=== PATIENT | male | born 1990 | race Hispanic/Latino ===

== ENCOUNTER 2019-09-07 22:54 | Emergency (ER) | payer MEDICAID, OTHER ==
[2019-09-08] MEDS ORDERED: ORPHENADRINE CITRATE 30 MG/ML ML ONE (00:34)
[2019-09-08] MEDS ORDERED: KETOROLAC TROMETHAMINE 60 MG/2 ML VIAL ONE (00:34)
== END 2019-09-08 01:27 | disposition home or self-care (01) ==
LOC: EDH 22:54
DX: S20.229A Contusion of unspecified back wall of thorax, initial encounter (principal); S00.93XA Contusion of unspecified part of head, initial encounter; X58.XXXA Exposure to other specified factors, initial encounter; Y93.89 Activity, other specified; Y92.512 Supermarket, store or market as the place of occurrence of the external cause; Y99.8 Other external cause status; M62.830 Muscle spasm of back
CPT/HCPCS: 71046; 72040; 96372 ×2; 99284; J1885; J2360

== ENCOUNTER 2023-07-11 20:14 | Emergency (ER) | payer OTHER ==
[~2023-07-11] VITALS: Ht 165.1 cm; Wt 75.7 kg
[2023-07-11] MEDS ORDERED: IBUP-2077 PO (23:00)
[2023-07-11] MEDS ORDERED: HYDR25SU11 RC (23:00)
[2023-07-11] MEDS ORDERED: DOCU-116 PO (23:00)
[2023-07-11 23:45] VITALS: BP 136/84; PULSE 62; RESP 16; O2SAT 99
== END 2023-07-11 23:50 | disposition home or self-care (01) ==
LOC: EDH 20:14
DX: K64.9 Unspecified hemorrhoids (principal); K59.00 Constipation, unspecified; K62.89 Other specified diseases of anus and rectum
CPT/HCPCS: 99282

== ENCOUNTER 2023-10-19 11:50 | Emergency (ER) | payer OTHER ==
[~2023-10-19] VITALS: Ht 165.1 cm; Wt 73.9 kg
[~2023-10-19 11:50] MED LIST: DOCU-116 PO; HYDR25SU11 RC; IBUP-2077 PO
[2023-10-19 12:31] LABS: INFLUENZA TYPE A Negative For Type A (NEGATIVE); INFLUENZA TYPE B Negative For Type B (NEGATIVE)
[2023-10-19 12:53] LABS: SARS-CoV-2, RNA, NAAT POSITIVE SARS CoV-2 (NEGATIVE)
[2023-10-19] MEDS ORDERED: BENZ-39 PO (13:02)
[2023-10-19 13:19] VITALS: BP 120/72; PULSE 74; RESP 16; O2SAT 100
== END 2023-10-19 13:20 | disposition home or self-care (01) ==
LOC: EDH 11:50
DX: U07.1 COVID-19 (principal); Z79.899 Other long term (current) drug therapy
CPT/HCPCS: 87635; 87804

== ENCOUNTER 2024-02-28 13:32 | Emergency (ER) | payer OTHER ==
[~2024-02-28] VITALS: Ht 167.6 cm; Wt 72.6 kg
[~2024-02-28 13:32] MED LIST changes: +BENZ-39 PO
[2024-02-28 15:05] LABS: RAPID GROUP A STREP negative (NEGATIVE)
[2024-02-28 15:10] LABS: SARS-CoV-2, RNA, NAAT NEGATIVE SARS CoV-2 (NEGATIVE)
[2024-02-28 15:15] LABS: INFLUENZA TYPE A Negative For Type A (NEGATIVE); INFLUENZA TYPE B Negative For Type B (NEGATIVE)
--- NOTE | 2024-02-28 15:42 | ERN ---
General Chief Complaint: Flu Symptoms Stated Complaint: FLU LIKE SYMPTOMS X4 DAYS Time Seen by MD: 13:58 Time Seen by Midlevel: 13:58 Source: patient History of Present Illness Initial Comments 33-year-old male presents to the ED for evaluation of flu-like symptoms onset 4 days ago. Allergies: Coded Allergies: No Known Drug Allergies (Unverified Allergy, Unknown, 09/08/19) Home Meds Active Scripts Benzonatate (Tessalon Perles) 100 Mg Cap, 100 MG PO TID for cough for 10 Days, #30 CAP 0 Refills Prov:JOSE ALBERTO AGUILAR 02/28/24 Azithromycin (Azithromycin) 250 Mg Tablet, 1 TAB PO AD for 5 Days, #6 TAB 0 Refills 2 the first day followed by 1 for days 2-5 Prov:JOSE ALBERTO AGUILAR 02/28/24 Benzonatate (Tessalon Perles) 100 Mg Cap, 100 MG PO TIDP PRN for COUGH, #30 CAP Prov:JUAN GREENWOOD NP 10/19/23 Ibuprofen (Ibuprofen 800 mg Tab) 800 Mg Tab, 800 MG PO Q8H PRN for PAIN, #12 TAB 0 Refills Prov:KAT TOLBERT 07/11/23 Docusate Sodium (Colace) 100 Mg Capsule, 100 MG PO TID for constipation, #30 CAP 0 Refills TAKE EACH DOSE WITH 16 OZ WATER Prov:KAT TOLBERT 07/11/23 Hydrocortisone Acetate (Anucort-Hc) 25 Mg Supp.rect, 25 MG RC HS for 7 Days, #7 EA 1 Refill Prov:KAT TOLBERT 07/11/23 Past Medical History Past Medical History: No Pertinent History Past Surgical History: None ROS Dictation Constitutional: Negative for fever,chills, and weight loss Eyes: Negative for injury, pain,redness, and discharge ENT: Negative for injury,pain or swelling Cardiovascular: Negative for chest pain, palpitations, and edema Respiratory: Negative for shortness of breath, cough, and wheezing, Abdomen/GI: Negative for abdominal pain, nausea, vomiting, diarrhea, and constipation Back: Negative for injury and pain : Negative for injury, bleeding and discharge MS/Extremity: Negative for injury and deformity Skin: Negative for rash, and discoloration Neuro: Negative for headache, weakness, numbness, tingling, and seizure Psych: Negative for suicide ideation, homicidal ideation, and hallucinations Physical Exam Physical Exam Dictation General: awake, alert, NAD Head/Face: Normocephalic, atraumatic Eyes: PERRL, EOMI, vision at baseline ENT: oral cavity clear, TMs clear, no signs of infection Neck: Trachea midline, supple, no nuchal rigidity Cardiovascular: RRR, normal S1/S2, No MRGs, no JVD Respiratory: CTAB, no respiratory distress, No rales or wheezes Abdomen: Soft, non-tender, non-distended, normal bowel sounds, no guarding or rebound. Skin: Warm, dry, normal turgor, no rash MS/Extremity: Pulses equal, no cyanosis, neurovascular intact, FROM Neuro: COAx4, GCS 15, strength 5/5, CN 2-12 intact, normal cerebellar exam, normal gait, Psych: Normal behavior, mood, and affect normal Results Laboratory and Microbiology Lab and Micro Result Laboratory Tests Test 02/28/24 14:40 Influenza Type A Antigen Negative For Type A Influenza Type B Antigen Negative For Type B SARS-CoV-2, RNA, NAAT NEGATIVE SARS CoV-2 Group A Streptococcus Rapid negative (NEGATIVE) Labs Reviewed?: Yes MDM MDM: Differential diagnosis: Influenza, viral syndrome, strep Previous outside records reviewed: Old ER visits. Need for hospitalization: Patient does not meet criteria for hospitalization. Need for emergency major/minor surgery: No Patient's prior external medical records from other ER visits were reviewed by me as indicated. Prior testing and results from previous visits were reviewed. Prior tests were taken into account with medical decision making and resource utilization, independent historian/historians were used to obtain complete medical history. I independently interpreted the test that were performed, results were reviewed by me and considered findings on radiology if ordered. Medical management and examination interpretation discussions were had by me with other qualified healthcare professionals as indicated for the patient's care. ED Course Orders Procedure Category Date Status Time Covid Rna Naat LAB 02/28/24 Complete 14:03 Influenza Type A & B, LAB 02/28/24 Complete Rapid 14:03 Rapid (Group A Strep) LAB 02/28/24 Complete 14:03 Vital Signs Date Time Temp Pulse Resp B/P (MAP) Pulse Ox O2 Delivery O2 Flow Rate FiO2 02/28/24 16:27 98.6 78 18 143/89 98 Room Air* 0 21 02/28/24 15:11 98.1 70 18 146/95 98 Room Air* 0 21 02/28/24 14:59 97.9 70 20 147/102 97 Room Air 0 DX & DISP Disposition: Discharge Departure Impression: Primary Impression: Acute bronchitis Condition: Stable Scripts Benzonatate (Tessalon Perles) 100 Mg Cap 100 MG PO TID for cough for 10 Days, #30 CAP 0 Refills Prov: JOSE ALBERTO AGUILAR 02/28/24 Azithromycin (Azithromycin) 250 Mg Tablet 1 TAB PO AD for 5 Days, #6 TAB 0 Refills 2 the first day followed by 1 for days 2-5 Prov: JOSE ALBERTO AGUILAR 02/28/24 Referrals: SELF,REFERRAL (PCP) Time of Disposition: 16:07 I have reviewed, & agreed with my scribe's, documentation. (Entered by Justin Parry, acting as a scribe for MISBAH Aguilar) I have reviewed the case, and I agree with, Diagnosis and Plan I performed the substantive portion of the visit. I have reviewed and personally made and approve the management plan that is documented in the note by myself or the NICOLAS. I acknowledge for responsibility for the patient's management plan. I personally scribed for JOSE ALBERTO AGUILAR ([email or web address]) on 02/28/24 at 15:42. Electronically submitted by Justin Parry ([email or web address]). JOSE ALBERTO AGUILAR Feb 28, 2024 15:42
[2024-02-28] MEDS ORDERED: BENZ-39 PO (16:07)
[2024-02-28] MEDS ORDERED: AZIT250T9 PO (16:07)
[2024-02-28 16:27] VITALS: BP 143/89; PULSE 78; RESP 18; TEMP 98.6; O2SAT 98
== END 2024-02-28 16:30 | disposition home or self-care (01) ==
LOC: EDH 13:32
DX: J20.9 Acute bronchitis, unspecified (principal); Z20.822 Contact with and (suspected) exposure to COVID-19; Z79.899 Other long term (current) drug therapy
CPT/HCPCS: 87635; 87804; 87880; 99283

== ENCOUNTER 2024-08-16 17:08 | Emergency (ER) | payer OTHER ==
[~2024-08-16] VITALS: Ht 162.6 cm; Wt 68.0 kg
[~2024-08-16 17:08] MED LIST changes: +AZIT250T9 PO
--- NOTE | 2024-08-16 17:41 | ERN ---
ED Note History of Present Illness Stated Complaint: CYST UNDER LEFT EAR CAUSING PAIN Chief Complaint: Abscess Time Seen by MD: 17:10 Time Seen by Midlevel: 17:10 Dictation: The patient is a 34-year-old male with no past medical history who presents to the emergency department with complaints of abscess to the left side of his face be no the ear onset three days ago. Patient denies any fevers. Denies any drainage from ear. Allergies: Coded Allergies: No Known Drug Allergies (Unverified Allergy, Unknown, 09/08/19) Home Meds Active Scripts Benzonatate (Tessalon Perles) 100 Mg Cap, 100 MG PO TID for cough for 10 Days, #30 CAP 0 Refills Prov:JOSE ALBERTO ALFREDO 02/28/24 Azithromycin (Azithromycin) 250 Mg Tablet, 1 TAB PO AD for 5 Days, #6 TAB 0 Refills 2 the first day followed by 1 for days 2-5 Prov:JOSE ALBERTO ALFREDO 02/28/24 Benzonatate (Tessalon Perles) 100 Mg Cap, 100 MG PO TIDP PRN for COUGH, #30 CAP Prov:JUAN GREENWOOD NP 10/19/23 Ibuprofen (Ibuprofen 800 mg Tab) 800 Mg Tab, 800 MG PO Q8H PRN for PAIN, #12 TAB 0 Refills Prov:KAT TOLBERT 07/11/23 Docusate Sodium (Colace) 100 Mg Capsule, 100 MG PO TID for constipation, #30 CAP 0 Refills TAKE EACH DOSE WITH 16 OZ WATER Prov:KAT TOLBERT 07/11/23 Hydrocortisone Acetate (Anucort-Hc) 25 Mg Supp.rect, 25 MG RC HS for 7 Days, #7 EA 1 Refill Prov:KAT TOLBERT 07/11/23 Past Medical History Past Medical History: No Pertinent History Surgical History: None RN Note Reviewed/Agreed w/PFSH: Yes Review of System Dictation Constitutional: Negative for fever,chills, and weight loss Eyes: Negative for injury, pain,redness, and discharge ENT: Negative for injury,pain or swelling Cardiovascular: Negative for chest pain, palpitations, and edema Respiratory: Negative for shortness of breath, cough, and wheezing, Abdomen/GI: Negative for abdominal pain, nausea, vomiting, diarrhea, and constipation Back: Negative for injury and pain : Negative for injury, bleeding and discharge MS/Extremity: Negative for injury and deformity Skin: Negative for rash, and discoloration positive for abscess Neuro: Negative for headache, weakness, numbness, tingling, and seizure Psych: Negative for suicide ideation, homicidal ideation, and hallucinations Initial Vital Sign VS Vital Signs Date Time Temp Pulse Resp B/P (MAP) Pulse Ox O2 Delivery O2 Flow Rate FiO2 08/16/24 17:12 98.2 76 16 136/90 100 Room Air 0 08/16/24 18:14 21 Physical Exam Dictation Vital Signs reviewed General Appearance: Alert, oriented x 3, no acute distress, well developed, nourished. Head and Face: non-traumatic. Eyes: PERRL, pink conjunctivas, eyelid no trauma, anterior chamber with arcus senilis. Ears: Pinnas intact and no signs of trauma or erythema ear canals clear and no discharge TM no erythema , abscess noted to left side at the base left ear, no drainage, warmth to touch Nose: No discharge, no bleeding. Oropharynx: Mouth normal, tongue pink. pharynx clear,no erythema, tonsils no exudates, no abscesses noted, mucous membrane moist Neck: Supple, non-tender, no thyromegaly, no masses, no JVD, no bruits Breast:Deferred Chest:No tenderness, no crepitus, no paradoxical movement, no retractions Lungs:Clear, well-ventilated, symmetric, no rales, no wheezing, no rhonchi, no stridor, good breath sounds bilaterally Heart: Regular rate, regular rhythm, no murmur, no gallops Vascular: no peripheral edema, Abdomen: Soft, positive bowel sounds, nondistended, no guarding, nontender, no rebound, no masses no hepatomegaly, no splenomegaly, no Lea's sign, no hernias. Rectal: Deferred Genital: Deferred Neurological: Normal speech, motor function intact, sensory function intact Musculoskeletal: Neck nontender, full range of motion, back nontender, full range of motion, Extremities: nontender, full range of motion Skin: Color pink, dry, no turgor, no rash, no lacerations, no abrasions, no contusions. Lymphatic: Deferred Results (Laboratory/Radiology) Laboratory/Radiology Laboratory Tests Test 08/16/24 17:38 White Blood Count 11.1 K/uL (4.8-10.8) H Red Blood Count 4.83 MIL/uL (4.50-6.20) Hemoglobin 15.1 g/dL (14.0-18.0) Hematocrit 43.8 % (42-54) Mean Corpuscular Volume 90.7 fL (79-99) Mean Corpuscular Hemoglobin 31.3 pg (27.0-33.0) Mean Corpuscular Hemoglobin Concent 34.5 g/dL (32.0-36.0) Red Cell Distribution Width 14.6 % (11.0-15.5) Platelet Count 260 K/uL (130-400) Mean Platelet Volume 10.0 fL (7.5-10.5) Immature Granulocyte % (Auto) 0.6 % (0-1) Neutrophils (%) (Auto) 56.2 % (40.0-77.0) Lymphocytes (%) (Auto) 32.9 % (21.0-51.0) Monocytes (%) (Auto) 6.9 % (3.0-13.0) Eosinophils (%) (Auto) 3.0 % (0.0-8.0) Basophils (%) (Auto) 0.4 % (0.0-5.0) Neutrophils # (Auto) 6.2 K/uL (1.8-7.7) Lymphocytes # (Auto) 3.7 K/uL (1.0-4.8) Monocytes # (Auto) 0.8 K/uL (0.1-1.0) Eosinophils # (Auto) 0.33 K/uL (0.00-0.70) Basophils # (Auto) 0.05 K/uL (0.00-0.20) Absolute Immature Granulocyte (auto 0.07 K/uL (0-1) Nucleated Red Blood Cells 0.0 % (0.0-0.19) Erythrocyte Sedimentation Rate 4 MM/HR (0-15) Sodium Level 137 mmol/L (136-145) Potassium Level 4.1 mmol/L (3.5-5.1) Chloride Level 105 mmol/L (101-111) Carbon Dioxide Level 27 mmol/L (21-32) Blood Urea Nitrogen 14 mg/dL (7-18) Creatinine 0.9 mg/dL (0.5-1.3) Glomerular Filtration Rate Calc 114 mL/min (>90) Random Glucose 92 mg/dL (70-105) Total Calcium 8.5 mg/dL (8.5-10.1) C-Reactive Protein, Quantitative 4.80 mg/L (0.5-3.0) H REASON: Abscess to left side, r/o parotitis ORDERING PHYSICIAN: CANDIDO MUNROE PROCEDURE: MAXFACI W - CT MAXILLOFACIAL W/CONTRAST CT MAXILLOFACIAL W/CONTRAST REASON: Abscess to left side, r/o parotitis COMPARISON: None TECHNIQUE: Axial images are obtained through the facial bones following IV contrast, 100 cc Omnipaque 350. FINDINGS: There is diffuse swelling of subcutaneous soft tissues in the left side of the face. This is superficial to the parotid gland and extends superiorly and posteriorly to involve the base of the ear. There is a focal 6 mm fluid collection immediately anterior to the base of the ear, and subcutaneous soft tissues, consistent with an abscess. There are no other focal fluid collections. The underlying parotid gland appears unremarkable and symmetrical with the right parotid. Submandibular glands appear unremarkable. There are no lymphadenopathy. Tongue and tonsillar fossa tissues appear normal as do parapharyngeal tissues. Globes and retrobulbar soft tissues appear normal. Paranasal sinuses are normally aerated. IMPRESSION: 1. Superficial soft tissue swelling in the left lateral face consistent with cellulitis. There is a focal 6 mm fluid collection in the superficial soft tissues consistent with abscess, immediately anterior and inferior to the base of the left year. 2. Exam appears otherwise unremarkable, the underlying parotid gland appears normal. Labs Reviewed?: Yes ED Course ED Course Orders Procedure Category Date Status Time Cbc With Differential LAB 08/16/24 Complete 17:19 Basic Metabolic Panel LAB 08/16/24 Complete 17:19 Erythrocyte LAB 08/16/24 Complete Sedimentation Rate 17:19 Crp Quantitative LAB 08/16/24 Complete 17:19 0.9%Nacl 1000ml (Ns PHA 08/16/24 Complete 1000ml) 17:30 Ketorolac PHA 08/16/24 Complete Tromethamine 30mg/Ml 17:[address] 08/16/24 Resulted W/Contrast 18:07 Iohexol (Omnipaque) PHA 08/16/24 Complete 18:43 Clindamycin Ivpb PHA 08/16/24 In Process 600mg/50ml (Cleocin 19:30 Current Medications Medications (Trade) Dose Ordered Sig/Manuela Route PRN Reason Start Time Stop Time Status Last Admin Dose Admin Clindamycin HCl/ Dextrose 50 ml @ 100 mls/hr ONCE ONCE IV 08/16/24 19:30 08/16/24 19:59 08/16/24 19:25 Iohexol (Omnipaque) 35,000 mg STK-MED ONCE IV 08/16/24 18:43 08/16/24 18:44 DC Ketorolac Tromethamine (toRADol) 30 mg ONCE ONCE IVP 08/16/24 17:30 08/16/24 17:31 DC 08/16/24 18:04 Sodium Chloride 1,000 ml @ 0 mls/hr ONCE ONCE IV 08/16/24 17:30 08/16/24 17:31 DC 08/16/24 18:04 Vital Signs Date Time Temp Pulse Resp B/P (MAP) Pulse Ox O2 Delivery O2 Flow Rate FiO2 08/16/24 19:04 98.8 73 17 133/79 99 Room Air* 0 21 08/16/24 18:14 98.8 72 18 134/82 99 Room Air* 0 21 08/16/24 17:12 98.2 76 16 136/90 100 Room Air 0 Medical Decision Making MDM The patient is a 34-year-old male with no past medical history who presents to the emergency department with complaints of abscess to the left side of his face be no the ear onset three days ago. Patient denies any fevers. Denies any drainage from ear. Differential diagnosis: Abscess, mastoiditis, parotitis,cellulitis, sepsis CBC showed mild leukocytosis, no anemia, chemistry showed no electrolyte imbalance, C-reactive protein of 4.8. CT maxillofacial showed superficial soft tissue swelling in the left lateral face consistent with cellulitis and a 6 mm fluid collection superficial soft tissue consistent with the abscess. For this recent decision was to admit patient. I discussed patient admission planning but at this time patient does not want to be admitted and would like to leave against medical advice. Risks and benefits discussed with the patient include worsening cellulitis, sepsis and discussed with the patient. Patient continues to want to leave AMA. DX & DISP Disposition: AMA Departure Condition: Stable Scripts Clindamycin HCl (Clindamycin HCl) 300 Mg Capsule 1 CAP PO QID for 14 Days, #56 CAP 0 Refills Prov: CANDIDO MUNROE 08/16/24 Referrals: SELF,REFERRAL (PCP) Time of Disposition: 19:31 I have reviewed the case, and I agree with, Diagnosis and Plan CANDIDO MUNROE Aug 16, 2024 17:41
[2024-08-16 17:44] LABS: BASOPHILS # (AUTO) 0.05 K/uL (0.00-0.20); BASOPHILS % (AUTO) 0.4 % (0.0-5.0); EOSINOPHILS # (AUTO) 0.33 K/uL (0.00-0.70); HEMATOCRIT 43.8 % (42-54); IMMATURE GRANULOCYTE ABSOLUTE 0.07 K/uL (0-1); LYMPHOCYTES # (AUTO) 3.7 K/uL (1.0-4.8); LYMPHOCYTES % (AUTO) 32.9 % (21.0-51.0); MEAN CORPUSCULAR HEMOGLOBIN 31.3 pg (27.0-33.0); MEAN CORPUSCULAR HGB CONC 34.5 g/dL (32.0-36.0); MEAN CORPUSCULAR VOLUME 90.7 fL (79-99); MONOCYTES # (AUTO) 0.8 K/uL (0.1-1.0); MONOCYTES % (AUTO) 6.9 % (3.0-13.0); NEUTROPHILS # (AUTO) 6.2 K/uL (1.8-7.7); NEUTROPHILS % (AUTO) 56.2 % (40.0-77.0); PLATELET COUNT (AUTO) 260 K/uL (130-400); RED BLOOD CELL COUNT(AUTO) 4.83 MIL/uL (4.50-6.20); RED CELL DISTRIBUTION WIDTH 14.6 % (11.0-15.5); WHITE BLOOD COUNT (AUTO) 11.1 K/uL (4.8-10.8)
[2024-08-16 17:55] LABS: CREATININE 0.9 mg/dL (0.5-1.3); POTASSIUM 4.1 mmol/L (3.5-5.1)
[2024-08-16] MEDS: 0.9%NACL 1000ML 1,000 ML IV ONE (18:04)
[2024-08-16] MEDS: ketOROlac 30MG VIAL (30MG/ML) IVP ONE (18:04)
[2024-08-16] MEDS ORDERED: IOHEXOL 350 MG/ML 100ML INFUS..BTL IV ONE (18:43)
[2024-08-16 18:55] LABS: ERYTHROCYTE SEDIMENTATION RATE 4 MM/HR (0-15)
--- NOTE | 2024-08-16 19:05 | HMCIMG ---
CT MAXILLOFACIAL W/CONTRAST REASON: Abscess to left side, r/o parotitis COMPARISON: None TECHNIQUE: Axial images are obtained through the facial bones following IV contrast, 100 cc Omnipaque 350. FINDINGS: There is diffuse swelling of subcutaneous soft tissues in the left side of the face. This is superficial to the parotid gland and extends superiorly and posteriorly to involve the base of the ear. There is a focal 6 mm fluid collection immediately anterior to the base of the ear, and subcutaneous soft tissues, consistent with an abscess. There are no other focal fluid collections. The underlying parotid gland appears unremarkable and symmetrical with the right parotid. Submandibular glands appear unremarkable. There are no lymphadenopathy. Tongue and tonsillar fossa tissues appear normal as do parapharyngeal tissues. Globes and retrobulbar soft tissues appear normal. Paranasal sinuses are normally aerated. IMPRESSION: 1. Superficial soft tissue swelling in the left lateral face consistent with cellulitis. There is a focal 6 mm fluid collection in the superficial soft tissues consistent with abscess, immediately anterior and inferior to the base of the left year. 2. Exam appears otherwise unremarkable, the underlying parotid gland appears normal.
[2024-08-16] MEDS: CLINDAMYCIN IVPB 600MG/50ML 50 ML IV ONE (19:25)
[2024-08-16] MEDS ORDERED: CLIN-141 PO (19:31)
[2024-08-16 20:20] VITALS: BP 125/73; PULSE 70; RESP 18; TEMP 98.6; O2SAT 100
--- NOTE | 2024-08-16 20:21 | NUR ---
PATIENT IS ALERT AND ORIENTED X4, STATED HE DOES NOT WANT TO BE ADMITTED TO THE HOSPITAL. [facility] ARCHITECT AT BEDSIDE. PATIENT WAS EDUCATED BY PILLO AND PRIMARY NURSE ABOUT THE RISKS AND CONSEQUENCES INVOLVED IN LEAVING THE HOSPITAL AT THIS TIME, INCLUDING , THE BENEFITS OF CONTINUED TREATMENT AND HOSPITILIZATION, AND THE ALTERNATIVES, PATIENT VERBALIZED UNDERSTANDING , PROCEEDED TO REFUSE ADMISSION. PATIENT ADVICED TO FOLLOW UP WITH PCP OR SEEK EMERGENCY HELP IF NEEDED. AMA FORM SIGNED BY PATIENT.
== END 2024-08-16 20:22 | disposition left against medical advice (07) ==
LOC: EDH 17:08
DX: H92.02 Otalgia, left ear (principal); L02.01 Cutaneous abscess of face
CPT/HCPCS: 99285; 96365; 70487; 96361; 96375; 80048; 85025; 85651; 86140; 36415; J1885; J7030; J3490; Q9967